=== PATIENT | female | born 1985 | race Caucasian/White ===

== ENCOUNTER 2019-05-07 16:14 | Emergency (ER) | payer MEDICAID, OTHER ==
[~2019-05-07] VITALS: Ht 165.1 cm; Wt 58.9 kg
[2019-05-07 16:47] VITALS: Ht 165.1 cm; Wt 58.9 kg
[2019-05-07] MEDS ORDERED: KETOROLAC 30 MG INJ IM STA (17:33)
[2019-05-07] MEDS ORDERED: OXYC-279 PO (18:26)
[2019-05-07] MEDS ORDERED: IBUP-1542 PO (18:26)
[2019-05-07 19:17] VITALS: BP 99/58; PULSE 75; RESP 18
--- NOTE | 2019-05-18 13:36 | ERD ---
ER Documentation Chief Complaint Chief Complaint dropped dumbbell on rt big toe, red & swollen, moving. HPI This is a 33-year-old woman complaining of pain and mild swelling to the big toe of the right foot after a dumbbell fell on it while she was exercising. She denies skin breakdown or bleeding and has been able to ambulate but has some pain. She states she is able to move the toe but has pain with movement. ROS All systems reviewed and are negative except as per history of present illness. Medications Home Meds Active Scripts Ibuprofen* (Motrin*) 600 Mg Tab, 600 MG PO Q8 PRN for PAIN AND/OR INFLAMMATION, #30 TAB Prov:ROSETTE SPARKS MD 05/07/19 Oxycodone HCl/Acetaminophen (Percocet 5-325 mg Tablet) 1 Each Tablet, 1 EACH PO TID PRN for PAIN LEVEL 6-10, #12 TAB Prov:ROSETTE SPARKS MD 05/07/19 Allergies Allergies: Coded Allergies: No Known Allergy (Verified , 12/14/12) PMhx/Soc History of Surgery: Yes (cholecystectomy, ) Hx Miscellaneous Medical Probl: No Hx Alcohol Use: No Hx Substance Use: No Hx Tobacco Use: No FmHx Family History: No diabetes Physical Exam Vitals Per nurse's records Physical Exam GENERAL: Well-developed, well-nourished, well-hydrated, in no apparent distress, looks nontoxic in appearance SKIN: Warm and dry to touch, no abrasions, soft tissue contusion and swelling to the big toe of the right foot no lacerations, mild ecchymosis to the dorsal aspect of the big toe of the right foot EXTREMITIES: No clubbing cyanosis or edema of the calves, calves are bilaterally symmetrical, no Homans sign, no popliteal cord sign. Distal pulses equal and bilateral PSYCH: Normal affect without agitation or irritability Results 24 hrs Laboratory Tests Test 05/07/19 17:46 POC Beta HCG, Qualitative NEGATIVE Current Medications Medications Dose Sig/Lindsay Start Time Status Last (Trade) Ordered Route PRN Stop Time Admin Dose Reason Admin Ketorolac 30 mg ONCE STAT 05/07/19 DC 05/07/19 Tromethamine IM 17:33 17:50 (Toradol) 05/07/19 17:34 Procedures/MDM I administered Toradol 30 mg IM x1 for pain control. Three-view x-ray of the right foot performed, read by me revealing a nondisplaced fracture to the right first distal phalanx without displacement. No other fractures or dislocations noted. Right foot was placed in orthopedic splint for comfort and supportive measures, this may require surgical intervention although this will be deferred to orthopedic vocational rehab consultant that the patient can safely obtain as an outpatient. Instructions were provided to her. She is able to ambulate here in the ED without difficulty and her pain was controlled. Patient feels much better at this time, and vital signs are normal, symptoms have improved. I did give strict instructions to return to the ED if symptoms continue or worsen, patient will otherwise follow-up with primary care physic cortes. Patient understood instructions and agreed to plan. Disclaimer: Inadvertent spelling and grammatical errors are likely due to EHR/dictation software use and do not reflect on the overall quality of patient care. Also, please note that the electronic time recorded on this note does not necessarily reflect the actual time of the patient encounter. Departure Diagnosis: Primary Impression: Toe fracture, right Encounter type: initial encounter Toe: great toe Fracture type: closed Phalanx: distal Fracture alignment: nondisplaced Qualified Codes: S92.424A - Nondisplaced fracture of distal phalanx of right great toe, initial encounter for closed fracture Ruled Out: Pain of toe, Injury of toe Condition: Good Patient Instructions: Fracture, Toe [Closed] ROSETTE SPARKS MD May 18, 2019 13:36
== END 2019-05-07 19:17 | disposition home or self-care (01) ==
LOC: FTE 16:14
DX: S92.424A Nondisplaced fracture of distal phalanx of right great toe, initial encounter for closed fracture (principal); W20.8XXA Other cause of strike by thrown, projected or falling object, initial encounter; Y92.9 Unspecified place or not applicable
CPT/HCPCS: 73630; 81025; 96372; J1885; Z7502